=== PATIENT | female | born 1990 | race Caucasian/White ===

== ENCOUNTER → 2016-04-01 | Outpatient (CLI) | payer OTHER ==
--- NOTE | 2016-04-01 23:51 | REP ---
Clinical: Anatomical evaluation. Comparison: 01/28/2016 . Findings: Examination demonstrates a single live intrauterine in breech presentation. motion is identified by technologist. Placenta is noted posteriorly and grade 0 without evidence for placenta previa or abruption. Amniotic fluid volume is normal. Cervix measures 4.0 cm in length and appears closed. No evidence for nuchal cord. Gestational age by LMP 19 weeks 5 days with PH[place]IX 08/21/2016 . Gestational age by current measurements 20 weeks 2 days with [place] this 08/17/2016 . FHR equals 147 beats per minute. BPD 4.7 cm 20 weeks 1 day HC 17.6 cm 20 weeks 1 day AC 15.2 cm 20 weeks 3 days FL 3.3 cm 20 weeks 2 days HL 3.2 cm 20 weeks 4 days HC/AC ratio 1.16 Estimated weight 348 grams ( 70th percentile). Anatomical assessment demonstrates normal structures including cranium, choroid plexus, cavum, cerebellum/posterior fossa, lungs, four-chamber, stomach, cord insertion/three-vessel cord, kidneys/bladder, spine, and extremities. Limited evaluation of the facial features, heart/ventricular outflow tracts, and bilateral feet. Impression: Single live intrauterine in breech presentation demonstrating appropriate interval growth. Anatomical limitations as noted above. Remainder of the assessment is complete and normal. Signed by Azar Borrero MD 04/01/2016 11:43 P
== END ==
LOC: M RAD 15:41
PROVIDERS: ATTEND Obstetrics & Gynecology
DX: Z36 Encounter for antenatal screening of mother (principal); O10.012 Pre-existing essential hypertension complicating pregnancy, second trimester; Z3A.19 19 weeks gestation of pregnancy

== ENCOUNTER → 2016-04-28 | Outpatient (REF) | payer OTHER ==
[2016-04-28 18:37] LABS: REASON FOR REVIEW COMPREHENSIVE REVIEW
== END ==
LOC: M LAB REF 17:10
PROVIDERS: ATTEND Internal Medicine Medical Oncology
DX: D69.59 Other secondary thrombocytopenia (principal)

== ENCOUNTER → 2016-05-05 | Outpatient (CLI) | payer OTHER ==
--- NOTE | 2016-05-06 03:44 | REP ---
Clinical: Anatomical evaluation. Comparison: 04/01/2016 . Findings: Examination demonstrates a single live intrauterine in breech presentation. motion is identified by technologist. Placenta is noted posteriorly and grade zero without evidence for placenta previa or abruption. Amniotic fluid volume is normal. Cervix measures 5.1 cm in length and appears closed. No evidence for nuchal cord. Gestational age by LMP 24 weeks 4 days with PHO[place]IX 08/21/2016 . Gestational age by current measurements 25 weeks 0 days with [place] 08/18/2016 . FHR equals 136 beats per minute. Estimated weight 729 grams ( 47th percentile). Anatomical assessment demonstrates normal structures including cranium, choroid plexus, cavum, cerebellum/posterior fossa, facial features, lungs, four-chamber heart/ventricular outflow tracts, diaphragm, stomach, three-vessel cord, spine, and extremities. Impression: Single live intrauterine in breech presentation demonstrating appropriate interval growth. In conjunction with prior examination anatomical assessment is complete and normal. Signed by Azar Borrero MD 05/06/2016 03:36 A
== END ==
LOC: M RAD 15:42
PROVIDERS: ATTEND Obstetrics & Gynecology
DX: Z36 Encounter for antenatal screening of mother (principal); Z3A.24 24 weeks gestation of pregnancy

== ENCOUNTER → 2016-05-24 | Outpatient (CLI) | payer OTHER ==
[2016-05-24 13:15] LABS: MEAN CORPUSCULAR HEMOGLOBIN 30.2 pg (27.0-33.0); MEAN CORPUSCULAR HGB CONC 34.6 g/dl (32.0-36.5); MEAN CORPUSCULAR VOLUME 87.4 fl (80.0-96.0); RED CELL DISTRIBUTION WIDTH 13.1 % (11.5-14.5)
[2016-05-25 14:05] LABS: HIV SCRN NEGATIVE (NEGATIVE); HIV SCRN1 NEGATIVE (NEGATIVE)
[2016-05-25 14:06] LABS: CONTROL LINE INT CTR LINE PRESENT
== END ==
LOC: M SMT 08:05
PROVIDERS: ATTEND Advanced Practice Midwife
DX: Z36 Encounter for antenatal screening of mother (principal); Z3A.00 Weeks of gestation of pregnancy not specified

== ENCOUNTER → 2016-06-17 | Outpatient (CLI) | payer OTHER ==
[2016-06-17 14:21] LABS: WHITE BLOOD COUNT 12.9 K/mm3 (4.0-10.0)
[2016-06-17 14:22] LABS: MEAN CORPUSCULAR HEMOGLOBIN 29.8 pg (27.0-33.0); MEAN CORPUSCULAR HGB CONC 33.5 g/dl (32.0-36.5); MEAN CORPUSCULAR VOLUME 88.8 fl (80.0-96.0); RED CELL DISTRIBUTION WIDTH 31.2 % (11.5-14.5)
== END ==
LOC: M SMT 08:09
PROVIDERS: ATTEND Specialist
DX: D69.6 Thrombocytopenia, unspecified (principal)

== ENCOUNTER → 2016-07-15 | Outpatient (CLI) | payer OTHER ==
[2016-07-15 14:12] LABS: MEAN CORPUSCULAR HEMOGLOBIN 29.9 pg (27.0-33.0); MEAN CORPUSCULAR HGB CONC 34.1 g/dl (32.0-36.5); MEAN CORPUSCULAR VOLUME 87.8 fl (80.0-96.0); RED CELL DISTRIBUTION WIDTH 13.1 % (11.5-14.5); WHITE BLOOD COUNT 11.2 K/mm3 (4.0-10.0)
== END ==
LOC: M SMT 09:43
PROVIDERS: ATTEND Specialist
DX: D69.6 Thrombocytopenia, unspecified (principal)

== ENCOUNTER 2016-07-28 11:59 | Outpatient (CLI) | payer OTHER ==
[~2016-07-28] VITALS: Ht 167.6 cm; Wt 94.0 kg
[2016-07-28] MEDS ORDERED: LABE10TAB PO (12:23)
[2016-07-28] MEDS ORDERED: PRENTAB9 PO (12:23)
== END 2016-07-28 13:12 | disposition home or self-care (01) ==
LOC: M LDO 11:59
PROVIDERS: ATTEND Specialist
DX: O47.03 False labor before 37 completed weeks of gestation, third trimester (principal); Z3A.36 36 weeks gestation of pregnancy; D69.6 Thrombocytopenia, unspecified; Z88.0 Allergy status to penicillin; O99.113 Other diseases of the blood and blood-forming organs and certain disorders involving the immune mechanism complicating pregnancy, third trimester

== ENCOUNTER → 2016-07-28 | Outpatient (REF) | payer OTHER ==
[~2016-07-28] MED LIST: LABE10TAB PO; PRED10TA PO; PRENTAB9 PO
== END ==
LOC: M LAB REF 13:01
PROVIDERS: ATTEND Advanced Practice Midwife
DX: Z36 Encounter for antenatal screening of mother (principal); Z3A.00 Weeks of gestation of pregnancy not specified

== ENCOUNTER → 2016-08-05 | Outpatient (CLI) | payer OTHER ==
[2016-08-05 19:25] LABS: BASO % 0.1 % (0.0-1.0); EOS % 0.1 % (0.0-3.0); LARGE UNSTAINED CELL # 0.1 K/mm3 (0.0-0.4); LARGE UNSTAINED CELL % 0.7 % (0.0-4.0); MEAN CORPUSCULAR HEMOGLOBIN 29.7 pg (27.0-33.0); MONO # 0.5 K/mm3 (0.0-0.8); MONO % 3.4 % (0.0-5.0); NEUTROPHILS # 10.7 K/mm3 (1.8-7.7); NEUTROPHILS % 80.7 % (36.0-66.0); PLATELET COUNT, AUTOMATED 186 k/mm3 (150-450); RED CELL DISTRIBUTION WIDTH 12.9 % (11.5-14.5); WHITE BLOOD COUNT 13.2 K/mm3 (4.0-10.0)
== END ==
LOC: M SMT 15:34
PROVIDERS: ATTEND Specialist
DX: D69.6 Thrombocytopenia, unspecified (principal)

== ENCOUNTER 2016-08-09 09:09 | Inpatient (IN) | payer OTHER ==
[2016-08-09] VITALS (13 sets, daily range): BP systolic 113–136; BP diastolic 70–89
[~2016-08-09] VITALS: Ht 167.6 cm; Wt 88.0 kg
[~2016-08-09 09:09] MED LIST changes: -PRED10TA PO
[2016-08-09] MEDS ORDERED: PRED10TA PO (09:19)
[2016-08-09] MEDS ORDERED: LACTATED RINGER'S 1000 ML IV STA (10:17)
[2016-08-09] MEDS ORDERED: PROMETHAZINE INJ 25 MG/ML VIAL (J2550) IV ONE ×2 (10:30→23:30)
[2016-08-09] MEDS ORDERED: BUTORPHANOL 2 MG/ML INJ (J0595) IV ONE ×2 (10:30→23:30)
[2016-08-09] MEDS: miSOPROStol 50 MCG 1/2 TAB (S0191) PO SCH ×4 (10:42→23:24)
[2016-08-09 10:48] LABS: MEAN CORPUSCULAR HEMOGLOBIN 29.3 pg (27.0-33.0); MEAN CORPUSCULAR HGB CONC 32.7 g/dl (32.0-36.5); MEAN CORPUSCULAR VOLUME 89.7 fl (80.0-96.0); RED CELL DISTRIBUTION WIDTH 13.1 % (11.5-14.5); WHITE BLOOD COUNT 11.2 K/mm3 (4.0-10.0)
--- NOTE | 2016-08-09 11:00 | HPE ---
DATE OF ADMISSION: 08/09/2016 26-year-old 1, estimated date of delivery 08/21/2016, presents for induction of labor at 38 weeks 2 days due to chronic hypertension and thrombocytopenia. Anatomy scan within normal limits. The patient has been on prednisone to increase platelets prior to induction. Last normal menstrual period 11/29/2015, sonogram at 10 weeks changed date to 08/21/2016. Sought first trimester care with appropriate care. Switched from hydrochlorothiazide to labetalol during . She is allergic to PENICILLIN that causes hives. MEDICAL-SURGICAL: Hypertension currently taking labetalol 100 mg daily. FAMILY HISTORY: Seizure disorder. SOCIAL HISTORY: . Father of the baby present and supportive. Denies tobacco, alcohol, drugs or abuse. OBJECTIVE: Prepregnancy weight 174, total weight gain 36 pounds. B+, antibody negative, rubella immune, VDRL, hepatis B, hepatitis C, HIV, gonorrhea, chlamydia all negative. Quad screen within normal limits. 1-hour glucose 124. Group B strep is positive with sensitivities performed. Pre-eclamptic panel within normal limits with the exception of platelets. Platelet count January was 104, February was 90, April was 84. Initiated prednisone. Recheck was 186 on July. Vital signs are stable. No apparent distress. Heart rate is regular. Respirations are easy. Abdomen is soft, gravid, longitudinal lie. Irregular mild contractions. heart 145, moderate variability with accelerations. Sterile vaginal exam fingertip, 50%, -3 slightly firm. ASSESSMENT: Primip at 38+ gestation, chronic hypertension with thrombocytopenia, category I tracing. PLAN: Admit per consult Dr. Rodriguez. Misoprostol ripening. Early anesthesia consult once platelet count is available. Group B strep prophylaxis with onset of labor. Anticipate normal spontaneous vaginal .
[2016-08-09 11:17] LABS: ALT/SGPT 21 U/L (12-78); AST/SGOT 15 U/L (15-37); BILIRUBIN,TOTAL 0.2 MG/DL (0.2-1.0); CREATININE FOR GFR 0.63 MG/DL (0.55-1.02); GLOMERULAR FILTRATION RATE > 60.0 (>60); URIC ACID 4.4 MG/DL (2.6-6.0)
[2016-08-10] VITALS (44 sets, daily range): BP systolic 98–142; BP diastolic 54–96
[2016-08-10] MEDS ORDERED: hydrOXYzine 50 MG TAB PO ONE (00:15)
[2016-08-10] MEDS: miSOPROStol 50 MCG 1/2 TAB (S0191) PO SCH (04:18)
[2016-08-10 06:52] LABS: BASO % 0.3 % (0.0-1.0); EOS # 0.1 K/mm3 (0.0-0.50); EOS % 0.9 % (0.0-3.0); LARGE UNSTAINED CELL # 0.2 K/mm3 (0.0-0.4); LARGE UNSTAINED CELL % 1.3 % (0.0-4.0); LYMPH # 3.8 K/mm3 (1.5-6.5); LYMPH % 23.5 % (24.0-44.0); MEAN CORPUSCULAR HEMOGLOBIN 29.6 pg (27.0-33.0); MEAN CORPUSCULAR HGB CONC 33.8 g/dl (32.0-36.5); MEAN CORPUSCULAR VOLUME 87.4 fl (80.0-96.0); MONO # 0.9 K/mm3 (0.0-0.8); MONO % 5.6 % (0.0-5.0); NEUTROPHILS # 10.5 K/mm3 (1.8-7.7); NEUTROPHILS % 68.4 % (36.0-66.0); PLATELET COUNT, AUTOMATED 155 k/mm3 (150-450); RED CELL DISTRIBUTION WIDTH 13.3 % (11.5-14.5); WHITE BLOOD COUNT 15.4 K/mm3 (4.0-10.0)
[2016-08-10] MEDS ORDERED: LABETALOL 100 MG TAB PO SCH (09:00)
[2016-08-10] MEDS ORDERED: OXYTOCIN DRIP 30 UNITS in APPROPRIATE DILUENT 1 EA IV SCH ×2 (11:00→19:42)
[2016-08-10] MEDS ORDERED: OXYTOCIN 30 UNITS IN 0.9% NaCl 500ML IV BAG (J2590) As Ordered ONE (11:01)
[2016-08-10] MEDS ORDERED: FENTANYL 2MCG/ML ROPIVACAINE 0.2% IN 0.9% NACL 200ML IVBAG As Ordered ONE (15:42)
[2016-08-10] MEDS ORDERED: NALOXONE INJ 0.4 MG/1 ML VIAL (J2310) IV PRN (16:45)
[2016-08-10] MEDS ORDERED: ePHEDrine SULFATE 25 MG/5 ML(5MG/ML) SYRINGE IV PRN (16:45)
[2016-08-10] MEDS ORDERED: EPIDURAL/PCA KEYS XX PRN (16:45)
[2016-08-10] MEDS ORDERED: ONDANSETRON 4MG/2ML VIAL (J2405) IV PRN ×2 (16:45→19:45)
[2016-08-10] MEDS ORDERED: diphenhydrAMINE INJ 50MG/ML VIAL (J1200) IV PRN (16:45)
[2016-08-10] MEDS ORDERED: LACTATED RINGER'S 1000 ML IV PRN (16:45)
[2016-08-10] MEDS ORDERED: REFRIGERATOR IV KEYS XX PRN (16:45)
[2016-08-10] MEDS ORDERED: EPIDURAL COMMENT XX SCH (16:45)
[2016-08-10] MEDS ORDERED: FENTANYL/ROPIVACAINE/NACL BAG 200 ML EPIDURAL SCH (16:45)
[2016-08-10] MEDS ORDERED: ceFAZolin SOD 1 GM in D5W MINI-BAG PLUS 50 ML IV SCH (19:00)
[2016-08-10] MEDS: LR 1,000 ML IV SCH (19:42)
[2016-08-10] MEDS ORDERED: DOCUSATE SODIUM 100 MG CAP PO PRN (19:45)
[2016-08-10] MEDS ORDERED: RHOGAM 300 MCG (1500 IU) INJ (J2790) IM SCH (19:45)
[2016-08-10] MEDS ORDERED: DIBUCAINE 1% OINTMENT 30GM TOP PRN (19:45)
[2016-08-10] MEDS ORDERED: PROMETHAZINE 25 MG TAB PO PRN (19:45)
[2016-08-10] MEDS ORDERED: ACETAMINOPHEN 500 MG TAB PO PRN (19:45)
[2016-08-10] MEDS ORDERED: MEASLES,MUMPS,RUBELLA VACCINE INJ (MMR-II) (90707) SC SCH (19:45)
[2016-08-10] MEDS ORDERED: IBUPROFEN 800 MG TAB PO PRN (19:45)
[2016-08-10] MEDS ORDERED: hydrOXYzine 50 MG TAB PO SCH (21:00)
[2016-08-11] MEDS: LR 1,000 ML IV SCH (03:42)
[2016-08-11 06:01] VITALS: BP 126/81
[2016-08-11] MEDS: PRENATAL VITAMIN TAB PO SCH (08:10)
[2016-08-11 18:00] VITALS: BP 125/80
[2016-08-12 06:36] VITALS: BP 132/82
[2016-08-12] MEDS: PRENATAL VITAMIN TAB PO SCH (08:59)
[2016-08-12] MEDS ORDERED: IBUP-1114 PO (09:22)
[2016-08-12] MEDS ORDERED: ACET50TA PO (09:22)
[2016-08-12] MEDS ORDERED: COLA100C3 PO (09:23)
== END 2016-08-12 14:35 | disposition home or self-care (01) | DRG 767 ==
LOC: M LDI 09:09 → M OBS 08-10 22:00
PROVIDERS: ADMIT Advanced Practice Midwife; ATTEND Advanced Practice Midwife
PROC: 3E0DXGC Introduction of Other Therapeutic Substance into Mouth and Pharynx, External Approach (ICD-10-PCS; 2016-08-09)
PROC: 10D17ZZ Extraction of Products of Conception, Retained, Via Natural or Artificial Opening (ICD-10-PCS; principal; 2016-08-10)
PROC: 10E0XZZ Delivery of Products of Conception, External Approach (ICD-10-PCS; 2016-08-10)
DX: O10.02 Pre-existing essential hypertension complicating childbirth (principal); O99.12 Other diseases of the blood and blood-forming organs and certain disorders involving the immune mechanism complicating childbirth; Z37.0 Single live birth; Z3A.38 38 weeks gestation of pregnancy; D69.6 Thrombocytopenia, unspecified; Z88.0 Allergy status to penicillin; Z79.899 Other long term (current) drug therapy; O73.0 Retained placenta without hemorrhage; O99.820 Streptococcus B carrier state complicating pregnancy

== ENCOUNTER → 2017-10-10 | Outpatient (REF) | payer OTHER | LOC: M LAB REF 17:28 | DX: Z12.4 Encounter for screening for malignant neoplasm of cervix (principal) ==

== ENCOUNTER → 2018-11-29 | Outpatient (REF) | payer OTHER ==
[~2018-11-29] MED LIST changes: +COLA100C5 PO; +IBUP-1114 PO; +MAPA500T2 PO; +PRED10TA2 PO
[2018-12-02 14:07] LABS: HPV HYBRID CAPTURE II Negative (Negative)
== END ==
LOC: M LAB REF 14:10
PROVIDERS: ATTEND Obstetrics & Gynecology
DX: Z12.4 Encounter for screening for malignant neoplasm of cervix (principal)
CPT/HCPCS: 87624; G0123

== ENCOUNTER → 2019-03-16 | Outpatient (CLI) | payer OTHER ==
--- NOTE | 2019-03-16 14:43 | REP ---
OB ULTRASOUND: Real-time sonographic evaluation of the gravid uterus is performed. There is a single living intrauterine gestation. The estimated gestational age is 10 weeks 3 days based on a crown-rump length of 35 mm, EDC 10/09/2019 heart rate 169 beats per minute. There is no subchorionic hemorrhage. Cystic structure of the right ovary probably represents a corpus luteum approximately 1.7 cm in diameter. Electronically Signed by William Gr MD 03/16/2019 04:55 P
== END ==
LOC: M RAD 13:30
PROVIDERS: ATTEND Advanced Practice Midwife
DX: O36.80X0 Pregnancy with inconclusive fetal viability, not applicable or unspecified (principal); Z3A.10 10 weeks gestation of pregnancy

== ENCOUNTER → 2019-05-02 | Outpatient (CLI) | payer OTHER ==
[2019-05-02 20:11] LABS: HEMATOCRIT 39.9 % (36.0-47.0); HEMOGLOBIN 13.1 g/dl (12.0-15.5); MEAN CORPUSCULAR HGB CONC 32.8 g/dl (32.0-36.5); MEAN CORPUSCULAR VOLUME 88.5 fl (80.0-96.0); RED BLOOD COUNT 4.51 10^6/uL (4.00-5.40); WHITE BLOOD COUNT 10.2 10^3/uL (4.0-10.0)
[2019-05-02 20:13] LABS: PLATELET COUNT, AUTOMATED 84 10^3/uL (150-450)
== END ==
LOC: M PLALAB 13:36
PROVIDERS: ATTEND Advanced Practice Midwife
DX: D69.1 Qualitative platelet defects (principal); O99.112 Other diseases of the blood and blood-forming organs and certain disorders involving the immune mechanism complicating pregnancy, second trimester

== ENCOUNTER → 2019-05-09 | Outpatient (CLI) | payer OTHER ==
--- NOTE | 2019-05-09 18:04 | REP ---
Obstetric sonography: History: Supervision of , for anatomy. Findings: Scanning through the gravid uterus demonstrates a living single intrauterine gestation in a transverse head to the maternal right lie. motion is observed and heart rate is recorded at 156 beats per minute. An anterior grade 1 placenta is seen without evidence of previa or abruption. Amniotic fluid is subjectively normal. Closed cervical length measures 3.0 cm, viewed transabdominally. No extrauterine abnormalities observed. No anomaly is seen. Four-chamber heart and right ventricular outflow tract and spine are less than optimally seen due to position. The following additional anatomic structures are identified and felt to be unremarkable: cranium, choroid plexus, cavum, cerebellum and posterior fossa, face and profile, lungs, left ventricular outflow tract view, diaphragm, left-sided stomach, abdominal wall cord insertion, three-vessel cord, kidneys and bladder, upper and lower extremities. Biometry chart: BPD 4.3 cm 80 weeks 6 days head circumference 15.4 cm 80 weeks 3 days and no circumference 12.9 cm 18 weeks 3 days femur length 2.5 cm 17 weeks 4 days humeral length 2.5 cm 18 weeks 0 days HC/AC ratio normal 1.20 cephalic index normal 0.78 estimated weight 222 grams, 0 pounds 7 ounces, 24th percentile for 18 weeks 5 days. Impression: Viable single intrauterine gestation at 18 weeks 2 days by today's composite sonographic criteria. Expected gestational age estimate based on prior sonography is 18 weeks 1 day. [place] by prior sonography October 09, 2019. Electronically Signed by Jb Carey MD 05/10/2019 10:12 A
== END ==
LOC: M RAD 15:14
PROVIDERS: ATTEND Advanced Practice Midwife
DX: O10.012 Pre-existing essential hypertension complicating pregnancy, second trimester (principal); Z3A.18 18 weeks gestation of pregnancy

== ENCOUNTER → 2019-06-15 | Outpatient (CLI) | payer OTHER ==
--- NOTE | 2019-06-15 15:12 | REP ---
HISTORY: Followup incomplete anatomical screen. The prior examination of 05/09/2019 failed to optimally visualize four chamber heart, right ventricular outflow tract, and spine. Multiple ultrasonographic images of the gravid uterus show a single living intrauterine gestation in the po breech presentation. The placenta is posterior and not low lying. The cervix measures 4.4 cm in length and is closed. Due to a technical error, the heart rate was not obtained or could not be reproduced on the images. Evaluation of the maternal adnexal spaces showed no abnormalities. BPD 6.1 cm = 24 weeks 5 days HC 22.4 cm = 24 weeks 3 days AC 19.9 cm = 24 weeks 4 days FL 3.7 cm = 21 weeks 6 days The estimated weight is 607 grams which is at the 32nd percentile for 24 weeks 0 day gestational age. The four chamber heart, right ventricular outflow tract and spine were well visualized today and appear normal. IMPRESSION: Single living intrauterine gestation as described above with an estimated gestational age of 23 weeks 6 days via composite criteria and an estimated date of delivery of 10/06/2019 based on today's exam. No anomalies were detected as described above. Electronically Signed by Prakash Newton DO 06/15/2019 03:41 P
== END ==
LOC: M RAD 13:52
PROVIDERS: ATTEND Obstetrics & Gynecology
DX: Z34.82 Encounter for supervision of other normal pregnancy, second trimester (principal); Z3A.21 21 weeks gestation of pregnancy

== ENCOUNTER → 2019-06-22 | Outpatient (CLI) | payer OTHER ==
[2019-06-22 13:26] LABS: HEMATOCRIT 38.5 % (36.0-47.0); HEMOGLOBIN 12.9 g/dl (12.0-15.5); MEAN CORPUSCULAR HEMOGLOBIN 29.9 pg (27.0-33.0); MEAN CORPUSCULAR HGB CONC 33.5 g/dl (32.0-36.5); MEAN CORPUSCULAR VOLUME 89.3 fl (80.0-96.0); RED BLOOD COUNT 4.31 10^6/uL (4.00-5.40); WHITE BLOOD COUNT 11.1 10^3/uL (4.0-10.0)
[2019-06-22 13:30] LABS: PLATELET COUNT, AUTOMATED 71 10^3/uL (150-450)
== END ==
LOC: M WUC 09:19
PROVIDERS: ATTEND Obstetrics & Gynecology
DX: Z86.2 Personal history of diseases of the blood and blood-forming organs and certain disorders involving the immune mechanism (principal)

== ENCOUNTER → 2019-06-28 | Outpatient (REF) | payer OTHER | LOC: M PLALAB 12:22 | PROVIDERS: ATTEND Obstetrics & Gynecology | DX: O10.912 Unspecified pre-existing hypertension complicating pregnancy, second trimester (principal); Z3A.00 Weeks of gestation of pregnancy not specified ==

== ENCOUNTER → 2019-07-17 | Outpatient (REF) | payer OTHER ==
[2019-07-17 13:24] LABS: HEMATOCRIT 36.9 % (36.0-47.0); HEMOGLOBIN 12.6 g/dl (12.0-15.5); MEAN CORPUSCULAR HGB CONC 34.1 g/dl (32.0-36.5); MEAN CORPUSCULAR VOLUME 87.9 fl (80.0-96.0); WHITE BLOOD COUNT 10.7 10^3/uL (4.0-10.0)
[2019-07-17 13:39] LABS: PLATELET COUNT, AUTOMATED 85 10^3/uL (150-450)
== END ==
LOC: M PLALAB 08:37
PROVIDERS: ATTEND Obstetrics & Gynecology
DX: O10.912 Unspecified pre-existing hypertension complicating pregnancy, second trimester (principal)

== ENCOUNTER → 2019-08-17 | Outpatient (CLI) | payer OTHER ==
--- NOTE | 2019-08-17 15:54 | REP ---
OB ULTRASOUND: Real-time sonographic evaluation of gravid uterus performed. There is a single living intrauterine gestation, estimated gestational age 33 weeks 0 days, EDC 10/05/2019. Today's measurements indicate appropriate growth. BPD 87 mm = 35 weeks 1 day, 81st percentile HC 307 mm = 23 weeks 1 day, 68th percentile AC 285 mm = 32 weeks 3 days, 42nd percentile Femur length 63 mm = 32 weeks 3 days, 42nd percentile HC/AC ratio 1.08, within normal range 0.95-1.13. Estimated weight 2070 grams, 42nd percentile. Cervix is closed and measures 3.4 cm in length. heart rate 132 beats per minute. Amniotic fluid within normal limits, MONIKA 13.8, normal range 8.3-24.5. position vertex. Placenta is posterior and grade 1 with no previa or abruption.
== END ==
LOC: M WHC 13:35
PROVIDERS: ATTEND Advanced Practice Midwife
DX: O10.013 Pre-existing essential hypertension complicating pregnancy, third trimester (principal); Z3A.35 35 weeks gestation of pregnancy

== ENCOUNTER → 2019-08-31 | Outpatient (REF) | payer OTHER | LOC: M SFHCWAGY 17:36 | PROVIDERS: ATTEND Specialist | DX: O10.013 Pre-existing essential hypertension complicating pregnancy, third trimester (principal) ==

== ENCOUNTER → 2019-09-03 | Outpatient (REF) | payer OTHER ==
[2019-09-03 13:58] LABS: HEMATOCRIT 37.8 % (36.0-47.0); HEMOGLOBIN 12.4 g/dl (12.0-15.5); MEAN CORPUSCULAR HEMOGLOBIN 28.5 pg (27.0-33.0); MEAN CORPUSCULAR HGB CONC 32.8 g/dl (32.0-36.5); MEAN CORPUSCULAR VOLUME 86.9 fl (80.0-96.0); RED BLOOD COUNT 4.35 10^6/uL (4.00-5.40); WHITE BLOOD COUNT 10.9 10^3/uL (4.0-10.0)
[2019-09-03 13:59] LABS: PLATELET COUNT, AUTOMATED 90 10^3/uL (150-450)
== END ==
LOC: M PLALAB 10:44
PROVIDERS: ATTEND Advanced Practice Midwife
DX: O99.113 Other diseases of the blood and blood-forming organs and certain disorders involving the immune mechanism complicating pregnancy, third trimester (principal); D69.3 Immune thrombocytopenic purpura

== ENCOUNTER → 2019-09-07 | Outpatient (CLI) | payer OTHER ==
--- NOTE | 2019-09-07 09:23 | REP ---
REASON: Assess growth. Multiple ultrasonographic images of the gravid uterus show a single living intrauterine gestation in the cephalic presentation. Doppler interrogation of the heart shows a heart rate of 139 beats per minute. The placenta is posterior and not low lying. The subjective amniotic fluid volume is within normal limits. The calculated amniotic fluid index is 12.7 with an expected range of 7.7 to 24.9. The cervix measures 3.1 cm in length and is closed. BPD 9.3 cm = 38 weeks 0 days HC 32.4 cm = 36 weeks 4 days AC 30.8 cm = 34 weeks 5 days FL: 6.5 cm = 33 weeks 3 days The estimated weight is 2545 grams, which is at the 32nd percentile for a 45-iqss-8-day gestational age. IMPRESSION: Single living intrauterine gestation as described above with an estimated gestational age of 34 weeks 6 days via composite criteria and an estimated date of delivery of 10/13/2019 by today's exam.
== END ==
LOC: M WHC 07:51
PROVIDERS: ATTEND Advanced Practice Midwife
DX: O10.013 Pre-existing essential hypertension complicating pregnancy, third trimester (principal); Z3A.38 38 weeks gestation of pregnancy

== ENCOUNTER 2019-09-22 15:32 | Inpatient (IN) | payer OTHER ==
[~2019-09-22] VITALS: Ht 165.1 cm; Wt 97.7 kg
[2019-09-22] MEDS ORDERED: PRED5CON PO (15:52)
[2019-09-22 15:55] VITALS: BP 125/75
[2019-09-22 16:30] VITALS: BP 112/70
[2019-09-22 17:16] LABS: HEMATOCRIT 37.1 % (36.0-47.0); HEMOGLOBIN 12.3 g/dl (12.0-15.5); MEAN CORPUSCULAR HEMOGLOBIN 28.2 pg (27.0-33.0); MEAN CORPUSCULAR HGB CONC 33.2 g/dl (32.0-36.5); MEAN CORPUSCULAR VOLUME 85.1 fl (80.0-96.0); PLATELET COUNT, AUTOMATED 180 10^3/uL (150-450); RED BLOOD COUNT 4.36 10^6/uL (4.00-5.40); WHITE BLOOD COUNT 12.1 10^3/uL (4.0-10.0)
[2019-09-22] MEDS ORDERED: LABE100T36 PO (17:59)
[2019-09-22] MEDS: miSOPROStol 50 MCG 1/2 TAB (S0191) PO SCH ×2 (18:02→22:05)
--- NOTE | 2019-09-22 18:31 | HPEPDOC ---
Obstetrical History & Physical General Date of Admission Sep 22, 2019 at 15:32 History of Present Illness 29-year-old 2, para 1 who presents at 38 weeks for induction labor secondary to chronic hypertension. Her course is also been complicated by ITP. Chief Complaint: Induction of labor Age: 29 : 2 Livin Care Care: Good Care Dating Final EDC: Oct 05, 2019 Past Medical History Past Obstetrical History : Past Obstetrical History: Multigravida Type of Delivery: Spontaneous Vaginal Del. Sex of Infant: Male Past Medical History Medical History Hypertension, ITP Social History Marital Status: * Smoker: non-smoker Allergies Coded Allergies: Penicillins (Verified Allergy, Intermediate, HIVES, 09/23/19) Medications Scheduled Labetalol HCl (Labetalol HCl) 100 Mg Tablet, 100 MG PO DAILY Prednisone (Prednisone Intensol) 5 Mg/1 Ml Oral.conc, 40 MG PO DAILY No.137/Iron/Folic Acd ( Vitamin Tablet) 1 Tab Tab, 1 TAB PO DAILY Physical Examination Physical Examination GENERAL: Alert and oriented times three. BREAST: . ABDOMEN: Gravid and non-tender to touch. FETUS: Is vertex (VTX) by sterile vaginal examination (SVE), fetus is vertex (VTX) by Teddy. HEART RATE: Regular rate and rhythm. LUNGS: Clear to auscultation (CTA). Vital Signs/I&O Vital Signs Date Time Temp Pulse Resp B/P (MAP) Pulse Ox O2 Delivery O2 Flow Rate FiO2 09/22/19 16:30 101 18 112/70 (84) 09/22/19 15:55 98.3 Laboratory Data 24H LABS Laboratory Tests 2 09/22/19 15:42: Serology Scanned Report Hepatitis B Testing 09/22/19 16:50: Nucleated Red Blood Cells % (auto) 0.0 CBC/BMP Laboratory Tests 09/22/19 16:50 Pertinent Laboratoy Data Blood Type: B+ RBC Antibody Screen: Negative HIV: Negative Hepatitis B: Negative Hepatitis C: Negative Rapid Plasma Reagin: Nonreactive Rubella: Immune Chlamydia/Gonorrhea: Negative Group B Streptococcus: Negative Anatomy Ultrasound Placenta Location: Posterior Normal Anatomy: Yes Placenta Previa: No Vaginal Examination Dilation: Fingertip Effacement: 50% Station: -3 Cervical Position: Posterior Presentation: Cephalic presentation Assessment Variability: Moderate Accelerations: Positive Tocometer Contractions: No Assessment/Plan Assessment 29-year-old 2, para 1 at 38 weeks here for induction labor. Reassuring status. Chronic hypertension on 100 mg labetalol twice a day. ITP has completed course of steroids -Admit to labor and delivery, CBC, RPR, type screen. Patient's been thoroughly counseled regarding induction labor. Discussed medications , procedures as well as verbally consented for emergency surgery, blood products anesthesia. All questions been answered. The patient desires to proceed with admission. Plan to start induction labor with 50 g oral misoprostol. Plan Admit and orient. Satellite Tv Technician and consent. Diet: . Group B Streptococcus (GBS) [negative]. Labs and intravenous (IV) per unit protocol. Counseled on Pitocin and induction of labor (IOL). Lactated Ringers (LR): Bolus mL, then at mL/hr. Anticipate [normal spontaneous delivery ()]. C-S as appropriate. MANN THIBODEAUX MD. Sep 22, 2019 18:31
[2019-09-22 20:09] VITALS: BP 113/78
[2019-09-22 21:40] VITALS: BP 109/67
[2019-09-23] VITALS (40 sets, daily range): BP systolic 106–143; BP diastolic 55–92
[2019-09-23] MEDS: miSOPROStol 50 MCG 1/2 TAB (S0191) PO SCH ×2 (02:01→06:32)
--- NOTE | 2019-09-23 07:00 | IPNPDOC ---
Obstetrical Progress Note Date of Service Sep 23, 2019 Subjective Patient is well. She has received 3 doses of misoprostol. Plan for 1 additional dose Objective Vital Signs Date Time Temp Pulse Resp B/P (MAP) Pulse Ox O2 Delivery O2 Flow Rate FiO2 09/23/19 06:30 97.5 85 16 126/76 (93) Assessment Variability: Moderate Accelerations: Positive Heart Rate Tracing: Category I Tocometer Contractions: Yes Frequency: regular Sterile Vaginal Examination Dilation: 1cm Station: -3 Assessment and Plan Age: 29 : 2 Livin Status: Reassuring Group B Streptococcus: Negative Anticipate: Vaginal Delivery MANN THIBODEAUX MD. Sep 23, 2019 07:00
[2019-09-23] MEDS ORDERED: OXYTOCIN DRIP 30 UNITS in IV 1 EA IV SCH (10:00)
[2019-09-23] MEDS: LR 1,000 ML IV SCH ×3 (10:37→23:15)
[2019-09-23 11:16] LABS: HEMATOCRIT 39.2 % (36.0-47.0); HEMOGLOBIN 12.9 g/dl (12.0-15.5); MEAN CORPUSCULAR HEMOGLOBIN 28.1 pg (27.0-33.0); MEAN CORPUSCULAR HGB CONC 32.9 g/dl (32.0-36.5); MEAN CORPUSCULAR VOLUME 85.4 fl (80.0-96.0); PLATELET COUNT, AUTOMATED 174 10^3/uL (150-450); RED BLOOD COUNT 4.59 10^6/uL (4.00-5.40); WHITE BLOOD COUNT 14.7 10^3/uL (4.0-10.0)
--- NOTE | 2019-09-23 15:01 | IPNPDOC ---
Obstetrical Progress Note Date of Service Sep 23, 2019 Subjective 29yo undergoing IOL for CHTN. cx: /-3 cooks cath placed 70/30ml -epidural at request. Will cont pitocin IOL Objective Vital Signs Date Time Temp Pulse Resp B/P (MAP) Pulse Ox O2 Delivery O2 Flow Rate FiO2 09/23/19 14:10 97.8 78 18 132/86 (101) Assessment Accelerations: Positive Heart Rate Tracing: Category I Tocometer Contractions: Yes Frequency: regular Sterile Vaginal Examination Dilation: 1cm Effacement (%): 50% Cervical Consistency: Soft Cervical Position: Middle Assessment and Plan Age: 29 : 2 Livin Status: Reassuring Group B Streptococcus: Negative Anticipate: Vaginal Delivery MANN THIBODEAUX MD. Sep 23, 2019 15:00
[2019-09-23] MEDS ORDERED: FENTANYL 2MCG/ML ROPIVACAINE 0.2% IN 0.9% NACL 100ML IVBAG As Ordered ONE (19:09)
[2019-09-23] MEDS ORDERED: EPIDURAL/PCA KEYS XX PRN (20:20)
[2019-09-23] MEDS ORDERED: ONDANSETRON 4MG/2ML VIAL IV PRN (20:20)
[2019-09-23] MEDS ORDERED: EPIDURAL COMMENT XX SCH (20:20)
[2019-09-23] MEDS ORDERED: ePHEDrine SULFATE 25 MG/5 ML(5MG/ML) SYRINGE IV PRN (20:20)
[2019-09-23] MEDS ORDERED: LACTATED RINGER'S 1000 ML IV PRN (20:20)
[2019-09-23] MEDS ORDERED: REFRIGERATOR IV KEYS XX PRN (20:20)
[2019-09-23] MEDS ORDERED: NALOXONE INJ 0.4MG/1ML VIAL (J2310 PER 1MG) IV PRN (20:20)
[2019-09-23] MEDS ORDERED: diphenhydrAMINE 50MG/ML VIAL (J1200) IV PRN (20:20)
[2019-09-23] MEDS ORDERED: FENTANYL/ROPIVACAINE/NACL BAG 100 ML EPIDURAL SCH (20:20)
[2019-09-24] VITALS (27 sets, daily range): BP systolic 91–131; BP diastolic 50–81
--- NOTE | 2019-09-24 05:47 | DNPDOC ---
[facility] Delivery Note Delivery Note DATE OF DELIVERY: 09/24/2019 TIME OF : 0525 GENDER: Male. APGARS:, 9 and 9. WEIGHT:, 3230 grams or 7 pounds 2 ounces. LACERATIONS: None ANESTHESIA: Epidural. ESTIMATED BLOOD LOSS: 300ml COUNTS: 5 laparotomy sponges accounted for prior to after delivery. . DELIVERY NOTE: On 09/24/2019 at 0525, Mrs. Pitts a 29-year-old 1, 2, now para 2, had a spontaneous vaginal delivery of viable male , Apgars 9 and 9. Weight was 30-30 or 7 lbs. 2 oz. Head was delivered occiput anterior (OA). Nuchal cord was manually reduced followed by delivery of the shoulders and corpus. was handed to mom with a good cry. Cord was clamped times two and was cut by the father of baby under my direction. Placenta was then drained and delivered grossly intact. A premixed bag of 500 mL of normal saline with 30 units of Pitocin was then bolused along with uterine massage until the uterus was firm. On inspection, cervix, vagina, perineum was grossly intact and hemostatic. Mom and baby in recovery in stable condition. The couples decided to remain in son MANN Rivers MD. Sep 24, 2019 05:47
[2019-09-24] MEDS ORDERED: OXYTOCIN DRIP 30 UNITS in IV 1 EA IV SCH (06:03)
[2019-09-24] MEDS ORDERED: RHOGAM 300 MCG (1500 IU) INJ (J2790) IM SCH (06:15)
[2019-09-24] MEDS ORDERED: METHYLERGONOVINE MALEATE 0.2 MG TAB PO PRN (06:15)
[2019-09-24] MEDS ORDERED: IBUPROFEN 600MG TAB PO PRN (06:15)
[2019-09-24] MEDS ORDERED: MEASLES,MUMPS,RUBELLA VACCINE INJ (MMR-II) (90707) SC SCH (06:15)
[2019-09-24] MEDS ORDERED: DOCUSATE SODIUM 100 MG CAP PO PRN (06:15)
[2019-09-24] MEDS ORDERED: ACETAMINOPHEN 500 MG TAB PO PRN (06:15)
[2019-09-24] MEDS ORDERED: ACETAMINOPHEN TAB 650MG DOSE (2X325MG) PO PRN (06:15)
[2019-09-24] MEDS ORDERED: IBUPROFEN 800 MG TAB PO PRN (06:15)
[2019-09-24] MEDS ORDERED: MOM 30ML SUSPENSION UDC PO PRN (06:15)
[2019-09-24] MEDS ORDERED: DIBUCAINE 1% OINTMENT 30GM TOP PRN (06:15)
[2019-09-24] MEDS: LABETALOL 100 MG TAB PO SCH (08:46)
[2019-09-24] MEDS: PRENATAL VITAMINS CHEWABLE TABLET PO SCH (09:00)
[2019-09-25 05:55] VITALS: BP_SYST 130; BP_SYST 132; BP_DIAS 77; BP_DIAS 79
[2019-09-25 07:45] VITALS: BP 132/79
[2019-09-25] MEDS ORDERED: ACET-683 PO (07:45)
[2019-09-25] MEDS ORDERED: IBUP80TA PO (07:45)
[2019-09-25] MEDS: PRENATAL VITAMINS CHEWABLE TABLET PO SCH (09:00)
[2019-09-25 09:16] VITALS: BP 121/72
[2019-09-25] MEDS: LABETALOL 100 MG TAB PO SCH (09:16)
== END 2019-09-25 16:10 | disposition home or self-care (01) | DRG 806 ==
LOC: M LDI 15:32 → M OBS 09-24 08:10
PROVIDERS: ADMIT Obstetrics & Gynecology; ATTEND Obstetrics & Gynecology
PROC: 3E0DXGC Introduction of Other Therapeutic Substance into Mouth and Pharynx, External Approach (ICD-10-PCS; 2019-09-22)
PROC: 10E0XZZ Delivery of Products of Conception, External Approach (ICD-10-PCS; principal; 2019-09-24)
DX: O10.92 Unspecified pre-existing hypertension complicating childbirth (principal); Z37.0 Single live birth; D69.3 Immune thrombocytopenic purpura; O99.12 Other diseases of the blood and blood-forming organs and certain disorders involving the immune mechanism complicating childbirth; Z3A.38 38 weeks gestation of pregnancy; Z79.899 Other long term (current) drug therapy

== ENCOUNTER → 2020-04-11 | Outpatient (REF) | payer OTHER ==
[~2020-04-11] MED LIST changes: +ACET-683 PO; +IBUP80TA PO; +LABE100T36 PO; +LABE100T4 PO; -LABE10TAB PO; +MULTCAP PO; +PRED5CON PO
== END ==
LOC: M SFHCWAGY 17:13
PROVIDERS: ATTEND Advanced Practice Midwife
DX: Z12.4 Encounter for screening for malignant neoplasm of cervix (principal)
CPT/HCPCS: 87624; G0123

== ENCOUNTER → 2020-05-30 | Outpatient (CLI) | payer OTHER ==
[~2020-05-30] MED LIST changes: -LABE100T36 PO; +LABE100T5 PO
[2020-05-30 12:30] LABS: BASO % 0.5 % (0.0-1.0); EOS % 0.4 % (0.0-3.0); HEMATOCRIT 48.6 % (36.0-47.0); HEMOGLOBIN 16.4 g/dl (12.0-15.5); LYMPH # 3.7 10^3/uL (1.5-5.0); LYMPH % 47.4 % (24.0-44.0); MEAN CORPUSCULAR HEMOGLOBIN 27.4 pg (27.0-33.0); MEAN CORPUSCULAR HGB CONC 33.7 g/dl (32.0-36.5); MEAN CORPUSCULAR VOLUME 81.1 fl (80.0-96.0); MONO # 0.5 10^3/uL (0.0-0.8); MONO % 6.6 % (2.0-8.0); NEUTROPHILS # 3.5 10^3/uL (1.5-8.5); NEUTROPHILS % 44.8 % (36.0-66.0); PLATELET COUNT, AUTOMATED 121 10^3/uL (150-450); RED BLOOD COUNT 5.99 10^6/uL (4.00-5.40); WHITE BLOOD COUNT 7.8 10^3/uL (4.0-10.0)
== END ==
LOC: M WUC 10:24
PROVIDERS: ATTEND Specialist
DX: D69.3 Immune thrombocytopenic purpura (principal)

== ENCOUNTER → 2022-03-18 | Outpatient (REF) | payer OTHER ==
[~2022-03-18] MED LIST changes: -LABE100T4 PO; -LABE100T5 PO; +LABE100T6 PO; +LABE100T71 PO
== END ==
LOC: M PLALAB 12:23
PROVIDERS: ATTEND Advanced Practice Midwife
DX: Z12.4 Encounter for screening for malignant neoplasm of cervix (principal)
CPT/HCPCS: 87624; G0123

== ENCOUNTER 2022-08-31 10:31 | Emergency (ER) | payer OTHER ==
[~2022-08-31] VITALS: Ht 165.1 cm; Wt 76.6 kg
[2022-08-31] MEDS ORDERED: PERCOCET 5MG/325MG TAB PO ONE (13:20)
[2022-08-31] MEDS ORDERED: PERC5TAB12 PO (13:25)
[2022-08-31] MEDS ORDERED: MIRA3350 PO (13:25)
[2022-08-31] MEDS ORDERED: IBUP-1022 PO (13:25)
[2022-08-31 13:37] VITALS: BP 140/96
== END 2022-08-31 13:42 | disposition home or self-care (01) ==
LOC: M ED 10:31
DX: S20.211A Contusion of right front wall of thorax, initial encounter (principal); I10 Essential (primary) hypertension; V49.40XA Driver injured in collision with unspecified motor vehicles in traffic accident, initial encounter; Z88.0 Allergy status to penicillin; Z79.899 Other long term (current) drug therapy

== ENCOUNTER → 2023-03-30 | Outpatient (REF) | payer OTHER ==
[~2023-03-30] MED LIST changes: +IBUP-1022 PO; +MIRA3350 PO; +PERC5TAB12 PO
== END ==
LOC: M PLALAB 10:44
PROVIDERS: ATTEND Advanced Practice Midwife
DX: Z12.4 Encounter for screening for malignant neoplasm of cervix (principal)
CPT/HCPCS: 87624; G0123